=== PATIENT | female | born 1960 | race Caucasian/White ===

== ENCOUNTER 2023-01-26 11:23 | Emergency (ER) | payer OTHER ==
[~2023-01-26] VITALS: Ht 165 cm; Wt 55.0 kg
--- NOTE | 2023-01-26 11:30 | ED GU-Female ---
General Chief Complaint: - Reproductive Stated Complaint: URINARY PAIN/FREQUENCY History of Present Illness Date Seen by Provider: Jan 26, 2023 Time Seen by Provider: 11:30 Initial Comments 63-year-old female presents with dysuria has been going on for couple days. She is traveling here seeing her dad reports that she is becoming very uncomfortable. No fevers or chills. Some minor right lower back pain but thinks is more related to running on pavement. Allergies and Home Medications Allergies Coded Allergies: Sulfa (Sulfonamide Antibiotics) (Verified Allergy, Unknown, 01/26/23) Patient Home Medication List Home Medication List Reviewed: Yes Review of Systems Review of Systems Constitutional: no symptoms reported EENTM: no symptoms reported Cardiovascular: no symptoms reported Gastrointestinal: no symptoms reported Genitourinary: see HPI, burning Musculoskeletal: see HPI, back pain Skin: no symptoms reported Psychiatric/Neurological: No Symptoms Reported Physical Exam Vital Signs Vital Signs - First Documented 01/26/23 11:23 Temp 36.7 Pulse 58 Resp 16 B/P (MAP) 132/69 (90) Pulse Ox 99 O2 Delivery Room Air Capillary Refill : Height, Weight, BMI Height: '" Weight: lbs. oz. kg; BMI Method: General Appearance: WD/WN, no apparent distress HEENT: PERRL/EOMI Cardiovascular: normal peripheral pulses, regular rate, rhythm Respiratory: lungs clear, normal breath sounds Gastrointestinal: non tender, soft Back: no CVA tenderness, no vertebral tenderness, other (Mild right low back pain but not flank) Extremities: non-tender, normal inspection Neurologic/Psychiatric: alert, normal mood/affect, oriented x 3 Skin: normal color, warm/dry Progress/Results/Core Measures Suspected Sepsis SIRS Temperature: Pulse: Respiratory Rate: Blood Pressure / Mean: Results/Orders Lab Results Laboratory Tests Test 01/26/23 11:26 Range/Units Urine Color YELLOW Urine Clarity CLOUDY Urine pH 7.0 5-9 Urine Specific Greer 1.015 L 1.016-1.022 Urine Protein NEGATIVE NEGATIVE Urine Glucose (UA) NEGATIVE NEGATIVE Urine Ketones NEGATIVE NEGATIVE Urine Nitrite POSITIVE H NEGATIVE Urine Bilirubin NEGATIVE NEGATIVE Urine Urobilinogen 1.0 < = 1.0 MG/DL Urine Leukocyte Esterase 3+ H NEGATIVE Urine RBC (Auto) 2+ H NEGATIVE Urine RBC 10-25 H /HPF Urine WBC >100 H /HPF Urine Squamous Epithelial Cells 2-5 /HPF Urine Crystals NONE /LPF Urine Bacteria LARGE H /HPF Urine Casts NONE /LPF Urine Mucus NEGATIVE /LPF Urine Culture Indicated YES My Orders Orders - SANCHEZ,MANJEET L DO Ua Culture If Indicated (01/26/23 11:31) Phenazopyridine Tablet (Pyridium Tablet) (01/26/23 11:45) Urine Culture (01/26/23 11:26) Medications Given in ED Current Medications Medications Dose Ordered Sig/Sunita Route Start Time Stop Time Status Last Admin Dose Admin Phenazopyridine HCl 100 mg ONCE ONCE PO 01/26/23 11:45 01/26/23 11:46 DC 01/26/23 11:43 100 MG Vital Signs/I&O 01/26/23 11:23 Temp 36.7 Pulse 58 Resp 16 B/P (MAP) 132/69 (90) Pulse Ox 99 O2 Delivery Room Air Capillary Refill : Progress Note : Progress Note Patient's symptoms and urinalysis is consistent with urinary tract infection. Because she has some flank pain I will start her on Keflex to ensure that there is no early kidney infection. Patient was stable and discharged home Departure Impression Primary Impression: Urinary tract infection Qualified Codes: N30.01 - Acute cystitis with hematuria Disposition: HOME, SELF-CARE Condition: Stable Departure-Patient Inst. Referrals: NO,LOCAL PHYSICIAN (PCP/Family) Primary Care Physician Patient Instructions: Urinary Tract Infection, Adult (DC) Add. Discharge Instructions: Be sure to drink plenty of fluids. You may use [id number] Azo to help with symptoms. Follow-up with your primary care provider in about a week for recheck of your symptoms. All discharge instructions reviewed with patient and/or family. Voiced understanding. Scripts Cephalexin (Cephalexin) 500 Mg Tablet 500 MG PO QID, #20 TAB 0 Refills Prov: SANCHEZ,MANJEET L DO 01/26/23 SANCHEZ,MANJEET L DO Jan 26, 2023 11:30
[2023-01-26 11:36] LABS: BILIRUBIN,URINE NEGATIVE (NEGATIVE); CLARITY,URINE CLOUDY; COLOR,URINE YELLOW; GLUCOSE, URINE (UA) NEGATIVE (NEGATIVE); KETONES,URINE NEGATIVE (NEGATIVE); LEUKOCYTE ESTERASE ,URINE 3+ (NEGATIVE); NITRITE,URINE POSITIVE (NEGATIVE); PROTEIN,URINE NEGATIVE (NEGATIVE)
[2023-01-26 11:43] LABS: BACTERIA,URINE LARGE /HPF; WBC,URINE >100 /HPF
[2023-01-26] MEDS ORDERED: PHENAZOPYRIDINE 100 MG (PYRIDIUM) TABLET PO ONE (11:45)
[2023-01-26] MEDS ORDERED: CEPH500T PO (11:57)
[2023-01-26 11:59] VITALS: BP 132/69
== END 2023-01-26 11:59 | disposition home or self-care (01) ==
LOC: ER FS 11:25
DX: N39.0 Urinary tract infection, site not specified (principal); Z88.2 Allergy status to sulfonamides
CPT/HCPCS: 81000; 87077; 87088; 99283